=== PATIENT | male | born 1980 | race Caucasian/White ===

== ENCOUNTER 2018-04-13 20:21 | Outpatient (CLI) | payer MEDICAID | END 2018-04-13 20:22 | disposition critical access hospital (66) | LOC: EMS 20:21 | PROVIDERS: ATTEND Surgery | DX: K62.5 Hemorrhage of anus and rectum (principal) | CPT/HCPCS: A0425; A0427; A0999 ==

== ENCOUNTER 2018-04-13 20:42 | Emergency (ER) | payer MEDICAID ==
[2018-04-13] MEDS ORDERED: LIDOCAINE 2% URO-JET 5 ML SYRINGE UR STA (20:59)
--- NOTE | 2018-04-13 21:01 | ED Physician Documentation ---
History of Present Illness - Stated complaint Stated Complaint: RECTAL BLEED, CONSTIPATION - Chief complaint Chief Complaint: General - History obtained from History obtained from: Patient - History of Present Illness Timing: Today (37-year-old gentleman with history of bipolar disorder and hemorrhoids. He had a normal bowel movement Yesterday but today felt like he had a lump in his rectum that he could not get out. He was straining on the toilet and did have some bright red blood per rectum and then got chopsticks and try to take the poop out. That did not really work either. He did not have any heavier bleeding after that. He still feels like there is stool stuck in his rectum. He denies abdominal pain or vomiting.) Review of Systems Constitutional: denies: Fever, Chills Respiratory: denies: Dyspnea, Cough GI: denies: Abdominal Pain, Nausea, Vomiting PD PAST MEDICAL HISTORY - Present Medications Home Medications: Ambulatory Orders Medication Instructions Recorded Confirmed Polyethylene Glycol 3350 [Miralax] 17 gm PO DAILY PRN #1 bottle 04/13/18 - Allergies Allergies/Adverse Reactions: Allergies Allergy/AdvReac Type Severity Reaction Status Date / Time No Known Drug Allergies Allergy Verified 04/13/18 20:50 PD ED PE NORMAL - Vitals Vital signs reviewed: Yes - General General: Alert and oriented X 3, No acute distress - Abdomen Abdomen: Normal bowel sounds, Soft, Non tender - Rectal Rectal: Other (There is a firm fecal impaction which is partially disimpacted during exam and then an enema is inserted.) - Neuro Neuro: Alert and oriented X 3, Normal speech Results - Vitals Vitals: Vital Signs - 24 hr 04/13/18 20:45 Temperature 36.7 C Heart Rate 95 Respiratory 18 Rate Blood Pressure 139/93 H O2 Saturation 100 Oxygen O2 Source Room air - Labs Labs: Laboratory Tests 04/13/18 21:07 WBC 7.2 RBC 4.76 Hgb 14.8 Hct 43.6 MCV 91.6 MCH 31.0 MCHC 33.9 RDW 13.2 Plt Count 297 MPV 7.2 L PD MEDICAL DECISION MAKING - ED course ED course: After the disimpaction and the enema he had a large bowel movement with resolution of his symptoms. His H&H is reassuring. - Sepsis Event Vital Signs: Vital Signs - 24 hr 04/13/18 20:45 Temperature 36.7 C Heart Rate 95 Respiratory 18 Rate Blood Pressure 139/93 H O2 Saturation 100 Oxygen O2 Source Room air Departure - Departure Disposition: 01 Home, Self Care Clinical Impression: Fecal impaction, Hematochezia Condition: Good Record reviewed to determine appropriate education?: Yes Instructions: ED Impaction Fecal Treated Prescriptions: Polyethylene Glycol 3350 [Miralax] 17 gm PO DAILY PRN #1 bottle PRN Reason: Constipation Comments: Your blood pressure was elevated today on check into the emergency department. This does not mean that you have hypertension, it is a common phenomenon to come to the emergency department and have elevated blood pressure. I recommend that you see your primary care physician within the week to have it rechecked when you are feeling better.
[2018-04-13 21:29] LABS: HGB - HEMOGLOBIN 14.8 g/dL (14.0-18.0); MEAN CORPUSCULAR HGB CONC 33.9 g/dL (32.0-36.0); MEAN CORPUSCULAR VOLUME 91.6 fL (80.0-94.0); MEAN PLATELET VOLUME 7.2 fL (7.4-11.4); RED BLOOD COUNT 4.76 10^6/uL (4.70-6.10); RED CELL DISTRIBUTION WIDTH 13.2 % (12.0-15.0); WHITE BLOOD COUNT 7.2 x10^3/uL (4.8-10.8)
[2018-04-13] MEDS ORDERED: MAGNESIUM CITRATE 296 ML BOTTLE PO STA (21:33)
[2018-04-13 21:50] VITALS: BP 121/78
== END 2018-04-13 22:00 | disposition home or self-care (01) ==
LOC: EDUNIT# → ED 20:42
DX: K56.41 Fecal impaction (principal); K92.1 Melena; R03.0 Elevated blood-pressure reading, without diagnosis of hypertension
CPT/HCPCS: 36415; 85027; 99283; A9270

== ENCOUNTER 2018-09-16 11:35 | Emergency (ER) | payer MEDICAID ==
[2018-09-16 11:45] VITALS: BP 142/96
--- NOTE | 2018-09-16 12:41 | ED Physician Documentation ---
PD HPI HEENT - Stated complaint Stated Complaint: TOOTH ABCESS - Chief complaint Chief Complaint: Heent - History obtained from History obtained from: Patient - History of Present Illness Timing - onset: How many days ago Timing - duration: Days (few) Timing - details: Gradual onset, Still present Location: Sinuses, Tooth (he notes pain in left upper tooth and also has smell of "rotting meat" in his nose. He thought the smell was from in the house or room, but then realized it was in his nose/coming from him.) Associated symptoms: No: Fever, Congestion, Swollen nodes Recently seen: Not recently seen Review of Systems Constitutional: denies: Fever, Chills, Myalgias Nose: reports: Sinus pressure / pain (left maxillary). denies: Rhinorrhea / runny nose, Congestion Throat: reports: Dental pain / toothache. denies: Oral lesions / sores, Sore throat Cardiac: denies: Chest pain / pressure, Palpitations Respiratory: denies: Cough PD PAST MEDICAL HISTORY - Past Medical History Cardiovascular: None Respiratory: None Neuro: None Endocrine/Autoimmune: None Psych: Bipolar disorder - Past Surgical History Past Surgical History: No - Present Medications Home Medications: Ambulatory Orders Medication Instructions Recorded Confirmed Hydrocodone/Acetaminophen [[place] 1 each PO Q6H PRN #15 tablet 09/16/18 5-325 Tablet] RX: Clindamycin HCl [Clindamycin 300 mg PO TID #21 capsule 09/16/18 300MG CAP] RX: Naproxen 375 mg PO BID #20 tablet 09/16/18 - Allergies Allergies/Adverse Reactions: Allergies Allergy/AdvReac Type Severity Reaction Status Date / Time No Known Drug Allergies Allergy Verified 09/16/18 11:45 - Social History Does the pt smoke?: No Smoking Status: Never smoker Does the pt drink ETOH?: No Does the pt have substance abuse?: No - Immunizations Immunizations are current?: No - POLST Patient has POLST: No PD ED PE NORMAL - Vitals Vital signs reviewed: Yes - General General: Alert and oriented X 3, Well developed/nourished - HEENT HEENT: Pharynx benign, Other (significant dental decay. Left upper gum line with local swelling but no fluctuance. Some sinus tenderness to percussion left maxillary. ) - Neck Neck: Supple, no meningeal sign, No adenopathy - Cardiac Cardiac: RRR, No murmur - Respiratory Respiratory: Clear bilaterally - Derm Derm: Normal color, Warm and dry, No rash - Neuro Neuro: Alert and oriented X 3, No motor deficit, Normal speech Results - Vitals Vitals: Vital Signs - 24 hr 09/16/18 11:41 Temperature 36.8 C Heart Rate 96 Respiratory 22 Rate Blood Pressure 142/96 H O2 Saturation 98 Oxygen O2 Source Room air PD MEDICAL DECISION MAKING - ED course Complexity details: considered differential, d/w patient Departure - Departure Disposition: Home, Self Care Clinical Impression: Dental infection Condition: Stable Record reviewed to determine appropriate education?: Yes Instructions: ED Abscess Dental Follow-Up: aMrcell Patel DDS [Provider Admit Priv/Credential] - Prescriptions: RX: Clindamycin HCl [Clindamycin 300MG CAP] 300 mg PO TID #21 capsule Hydrocodone/Acetaminophen [[place] 5-325 Tablet] 1 each PO Q6H PRN #15 tablet PRN Reason: Pain RX: Naproxen 375 mg PO BID #20 tablet Comments: This looks like a dental infection and it probably has eroded into the maxillary sinus which is why you are having the terrible smell associated with it. We will treat this with clindamycin antibiotic and also naproxen anti-inflammatory. Rinse your mouth with antiseptic such as Listerine 2-3 times a day. Follow-up with [facility] dental clinic or you could call Dr. Patel oral surgeon to see if they would follow-up on this though sometimes they leave the simple extraction dental processes to the dentist. Recheck if not improving over the next few days. Discharge Date/Time: 09/16/18 13:16
[2018-09-16] MEDS ORDERED: IBUPROFEN 600 MG TABLET PO STA (12:56)
[2018-09-16] MEDS ORDERED: HYDROcod/ACETAM 5/325 MG TABLET PO STA (12:56)
[2018-09-16] MEDS ORDERED: CLINDAMYCIN 150 MG CAPSULE PO STA (12:56)
== END 2018-09-16 13:16 | disposition home or self-care (01) ==
LOC: ED 11:35
DX: K04.7 Periapical abscess without sinus (principal)
CPT/HCPCS: 99283; A9270

== ENCOUNTER 2023-03-12 14:25 | Emergency (ER) | payer MEDICAID ==
[2023-03-12 14:36] VITALS: BP 150/90
--- NOTE | 2023-03-12 17:04 | ED Physician Documentation ---
History of Present Illness - Stated complaint Stated Complaint: LT LEG ISSUE - Chief complaint Chief Complaint: Ext Problem - Additonal information Additional information: 42-year-old male presents to the emergency department for evaluation of what he believes to be a foreign body in his left leg after COVID-19 injection. He feels an effffgfypian scarab is running up his thigh especially at night. Has no fevers. Denies any falls or trauma. Denies that there could be a reason for metallic foreign body. He does present for evaluation with his who is also seeking evaluation for chest pain. Review of Systems Constitutional: reports: Reviewed and negative Musculoskeletal: reports: Other (b sensation in left leg) PD PAST MEDICAL HISTORY - Past Medical History Cardiovascular: None Respiratory: None Neuro: None Endocrine/Autoimmune: None Psych: Bipolar disorder - Past Surgical History Past Surgical History: No - Present Medications Home Medications: Ambulatory Orders Medication Instructions Recorded Confirmed Clindamycin HCl [Clindamycin 300MG 300 mg PO TID #21 capsule 09/16/18 CAP] Hydrocodone/Acetaminophen [[place] 1 each PO Q6H PRN #15 tablet 09/16/18 5-325 Tablet] Naproxen 375 mg PO BID #20 tablet 09/16/18 - Allergies Allergies/Adverse Reactions: Allergies Allergy/AdvReac Type Severity Reaction Status Date / Time No Known Drug Allergies Allergy Verified 03/12/23 14:30 - Social History Does the pt smoke?: No Smoking Status: Never smoker Does the pt drink ETOH?: No Does the pt have substance abuse?: No - Immunizations Immunizations are current?: No - POLST Patient has POLST: No PD ED PE NORMAL - General General: Alert and oriented X 3, No acute distress - Cardiac Cardiac: RRR, No murmur - Respiratory Respiratory: Clear bilaterally - Abdomen Abdomen: Normal bowel sounds, Soft, Non tender, Non distended - Derm Derm: Normal color, Warm and dry, No rash - Extremities Extremities: Other (Unremarkable exam of the bilateral lower extremities without evidence of scarring, swelling, ecchymosis or deformity. Normal gait without assistance.) - Neuro Neuro: Alert and oriented X 3 Eye Opening: Spontaneous Motor: Obeys Commands Verbal: Oriented GCS Score: 15 Results - Vitals Vitals: Vital Signs - 24 hr 03/12/23 14:30 Temperature 36.5 C Heart Rate 100 Respiratory 16 Rate Blood Pressure 150/90 H O2 Saturation 97 Oxygen O2 Source Room air - Rads (name of study) left femur Relevant Findings:: EMP independent interpretation of test (No obvious fracture or osseous lesion or dislocation. no foreign body) PD Medical Decision Making - ED course Complexity details: reviewed results, re-evaluated patient, d/w patient ED course: 42-year-old male presents emergency department for evaluation of what he believes to be a foreign body in his left thigh. He thinks an [place] beetle may be running around in the thigh. He thinks it happened after he got a COVID vaccination. The exam of the leg is unremarkable. An x-ray of the thigh showed no evidence of foreign body or fractures. History and exam is not consistent with infection. Patient is discharged home advised to follow the concern with his primary care provider. Departure - Departure Disposition: 01 Home, Self Care Clinical Impression: Sensation of foreign body Condition: Stable Record reviewed to determine appropriate education?: Yes Comments: [place] the x-ray of your left leg is normal. There is nothing to suggest a foreign body within the bones skin or tissues. There is no evidence of infection in the leg. Please discuss this ED visit with your primary care doctor.
--- NOTE | 2023-03-12 17:38 | XRAY Report ---
PROCEDURE: Femur 2V LT INDICATIONS: ? FB TECHNIQUE: AP and lateral views of the femur were acquired. COMPARISON: None. FINDINGS: Bones: No fractures or dislocations. No suspicious bony lesions. Soft tissues: No suspicious soft tissue calcifications or masses. No radiopaque soft tissue foreig n body seen. IMPRESSION: No acute bony abnormality. No radiopaque soft tissue foreign body. Reviewed by: Darrick Meadows MD on 03/12/2023 4:37 PM AKDT Approved by: Darrick Meadows MD on 03/12/2023 4:37 PM AKDT Station ID: [id number]
== END 2023-03-12 18:04 | disposition home or self-care (01) ==
LOC: ED 14:25
DX: R68.89 Other general symptoms and signs (principal)
CPT/HCPCS: 99283

== ENCOUNTER 2023-08-09 13:34 | Emergency (ER) | payer MEDICAID ==
[2023-08-09 13:59] VITALS: O2SAT 98
--- NOTE | 2023-08-09 14:56 | ED Physician Documentation ---
History of Present Illness - Stated complaint Stated Complaint: RT SIDE CHEST PX - Chief complaint Chief Complaint: General - History obtained from History obtained from: Patient - History of Present Illness Timing: Today Pain level max: 5 Pain level now: 0 - Additonal information Additional information: Patient is a 43 male who states that he has had right-sided chest wall pain for the past 2 to 3 days. He put a Lidoderm patch on which seem to help resolve the pain. Occasionally it is described as sharp. No fevers. No cough. No congestion. No recent travel. No recent antibiotics. No cardiac history. No leg swelling. He states he is not having the pain right now. He is wondering if the pain is related to his history of smoking. No left-sided or central chest pain. Pain is reproducible with palpation and movement. Does not recall any trauma. Review of Systems Constitutional: denies: Fever, Chills Nose: denies: Rhinorrhea / runny nose, Congestion Respiratory: denies: Cough GI: reports: Vomiting (Patient states he vomited 2 days ago, none today.). denies: Abdominal Pain, Diarrhea : denies: Dysuria, Frequency, Hesitancy Skin: denies: Rash Musculoskeletal: denies: Neck pain, Back pain Neurologic: denies: Focal weakness, Numbness, Headache PD PAST MEDICAL HISTORY - Past Medical History Past Medical History: Yes Cardiovascular: None Respiratory: None Neuro: None Endocrine/Autoimmune: None Psych: Bipolar disorder - Past Surgical History Past Surgical History: No - Present Medications Home Medications: Ambulatory Orders Medication Instructions Recorded Confirmed No Known Home Medications 08/09/23 08/09/23 - Allergies Allergies/Adverse Reactions: Allergies Allergy/AdvReac Type Severity Reaction Status Date / Time No Known Drug Allergies Allergy Verified 08/09/23 13:55 - Social History Does the pt smoke?: Yes Smoking Status: Current every day smoker Does the pt drink ETOH?: No Does the pt have substance abuse?: No - Immunizations Immunizations are current?: No - POLST Patient has POLST: No PD ED PE NORMAL - Vitals Vital signs reviewed: Yes - General General: Alert and oriented X 3, No acute distress - HEENT HEENT: PERRL, Moist mucous membranes - Neck Neck: Supple, no meningeal sign - Cardiac Cardiac: RRR, Strong equal pulses - Respiratory Respiratory: No respiratory distress, Clear bilaterally - Abdomen Abdomen: Soft, Non tender, Non distended - Derm Derm: Warm and dry - Extremities Extremities: No edema, No calf tenderness / cord - Neuro Neuro: Alert and oriented X 3 - Psych Psych: Normal mood, Normal affect - Free text exam Free text exam: Tender to palpation over the right ribs, approximately 9 and 10 in the anterolat eral aspect. No crepitus. No ecchymosis. Results - Vitals Vitals: Vital Signs - 24 hr 08/09/23 08/09/23 13:45 16:07 Temperature 36 C L 36.2 C L Heart Rate 84 72 Respiratory 16 16 Rate Blood Pressure 123/80 129/91 H O2 Saturation 98 98 Oxygen O2 Source Room air - EKG (time done) 1451 EKG releavant findings:: EKG personally interpreted by author of this note. Relevant findings are: Rate: Rate (enter#) (79) Rhythm: NSR [place]: Normal Intervals: Normal ME QRS: Normal Ischemia: Normal ST segments, T wave inversion (III), Non specific changes (flattened t wave aVF) - Rads (name of study) cxr Relevant Findings:: Final report received, See rad report PD Medical Decision Making - ED course Complexity details: reviewed results, re-evaluated patient, considered differential (No ST elevation [place], no aortic dissection, no PE, no tension pneumothorax, no aortic aneurysm), d/w patient ED course: Patient with sharp right-sided chest wall pain. No acute findings on EKG or chest x-ray. The pain is reproducible with palpation and movement. No recent surgeries, calf swelling, history of DVT or PE. Symptoms not consistent with PE today. Likely costochondritis versus pleurisy. Could also be a chest wall strain. We will continue supportive care and have him follow-up with his doctor for further care. Patient counseled regarding signs and symptoms for which I believe and urgent re-evaluation would be necessary. Patient with good understanding of and agreement to plan and is comfortable going home at this time This document was made in part using voice recognition software. While efforts are made to proofread this document, sound alike and grammatical errors may occur. Departure - Departure Disposition: 01 Home, Self Care Clinical Impression: Chest wall pain Condition: Good Instructions: ED Chest Pain Costochondritis Follow-Up: Katus,Cara, CERTIFIED NURSE MIDWIFE [Primary Care Provider] - Comments: Continue Motrin at home and all as needed for pain at home. Your EKG and chest x-ray do not show any acute abnormalities. Please follow-up with your doctor for further care. It is recommended that you stop smoking. Please return if you worsen. Forms: PCP List Discharge Date/Time: 08/09/23 16:08
--- NOTE | 2023-08-09 15:25 | XRAY Report ---
PROCEDURE: Chest 1 View X-Ray INDICATIONS: R sided CP TECHNIQUE: One view of the chest was acquired. COMPARISON: None. FINDINGS: Surgical changes and devices: None. Lungs and pleura: No pleural effusions or pneumothorax. Lungs are clear. Mediastinum: Mediastinal contours appear normal. Heart size is normal. Bones and chest wall: No suspicious bony lesions. Overlying soft tissues appear unremarkable. IMPRESSION: No acute cardiopulmonary process. Reviewed by: Randy Ortega MD on 08/09/2023 3:23 PM PST Approved by: Randy Ortega MD on 08/09/2023 3:23 PM PST Station ID: [id number]
[2023-08-09 16:15] VITALS: BP 129/91
== END 2023-08-09 16:08 | disposition home or self-care (01) ==
LOC: ED 13:34
DX: R07.89 Other chest pain (principal); F17.200 Nicotine dependence, unspecified, uncomplicated
CPT/HCPCS: 80053; 83690; 84484; 85025; 93005; 99283; 99284